=== PATIENT | female | born 1970 | race Caucasian/White ===

== ENCOUNTER 2023-12-20 08:36 | Day surgery (SDC) | payer OTHER ==
[~2023-12-20] VITALS: Ht 160 cm; Wt 83.9 kg
[~2023-12-20 08:36] MED LIST: ALOGLIPTIN25 MG PO; BACLOFEN10 MG PO; BENADRYL 25MG C25 MG PO; CELEBREX200 MG PO; FLEXERIL5 M1 PO; GLIPIZIDE5 M2 PO; INDERAL 20MG TA20 MG PO; MULTIVITAMI9 PO; NOVOLIN 70/30 INNLT SC; OMEGA 31000 MG PO; PROBIOTI2; VRAYLAR1.5 MG PO; VYVANSE60 M1 PO; ZANTAC 36010 MG
[2023-12-20] MEDS ORDERED: FAMOTIDINE 10MG/ML 2ML SDV IV ONE (08:55)
[2023-12-20] MEDS ORDERED: SODIUM CHLORIDE 0.9% 1,000 ML IV ONE (08:55)
[2023-12-20] MEDS ORDERED: VENTOLIN HFA108 MCG PO (09:06)
[2023-12-20] MEDS ORDERED: ONDANSETRON HCl 4 MG/2 ML SDV ONE (10:29)
[2023-12-20 10:53] VITALS: BP 141/87
[2023-12-20] MEDS ORDERED: PROPOFOL 200 MG/20 ML VIAL IV ONE (14:18)
[2023-12-20] MEDS ORDERED: GLYCOPYRROLATE 0.2 MG/ML IV ONE (14:18)
[2023-12-20] MEDS ORDERED: LIDOCAINE HCL 2% 2ML SDV IV ONE (14:18)
== END 2023-12-20 11:00 | disposition home or self-care (01) ==
LOC: ENDO 08:36 → ORM 12:00 → ENDO 16:00
PROVIDERS: ATTEND Internal Medicine Gastroenterology
DX: K22.2 Esophageal obstruction (principal); K31.89 Other diseases of stomach and duodenum; K21.00 Gastro-esophageal reflux disease with esophagitis, without bleeding; E11.9 Type 2 diabetes mellitus without complications